=== PATIENT | female | born 1975 | race Hispanic/Latino ===

== ENCOUNTER → 2019-09-11 | Outpatient (CLI) | payer OTHER, MEDICARE ==
[~2019-09-11] MED LIST: CYCL30DR OP; LEVO50TA11 PO; NITR100C PO; TRAZ-185 PO
== END | disposition home or self-care (01) ==
LOC: RAH 07:28
PROVIDERS: ATTEND Physical Medicine & Rehabilitation
DX: M51.26 Other intervertebral disc displacement, lumbar region (principal); M48.061 Spinal stenosis, lumbar region without neurogenic claudication
CPT/HCPCS: 72148

== ENCOUNTER → 2020-05-05 | Outpatient (CLI) | payer OTHER | END | disposition home or self-care (01) | LOC: RAH 13:42 | PROVIDERS: ATTEND Family Medicine | DX: M19.072 Primary osteoarthritis, left ankle and foot (principal); M81.0 Age-related osteoporosis without current pathological fracture; M79.604 Pain in right leg; M79.672 Pain in left foot | CPT/HCPCS: 73630; 93971 ==

== ENCOUNTER → 2020-08-09 | Outpatient (CLI) | payer OTHER | END | disposition home or self-care (01) | LOC: RAH 10:50 | PROVIDERS: ATTEND Physical Medicine & Rehabilitation | DX: M25.511 Pain in right shoulder (principal) | CPT/HCPCS: 73030 ==

== ENCOUNTER 2021-08-03 09:37 | Day surgery (SDC) | payer OTHER ==
[2021-08-01 11:54] LABS: BASOPHILS % (AUTO) 0.3 % (0.0-5.0); EOSINOPHILS % (AUTO) 1.9 % (0.0-8.0); HEMATOCRIT 39.1 % (36-48); LYMPHOCYTES % (AUTO) 21.4 % (21.0-51.0); MEAN CORPUSCULAR HEMOGLOBIN 29.3 pg (27.0-33.0); MEAN CORPUSCULAR VOLUME 91.8 fL (79-99); MONOCYTES % (AUTO) 6.2 % (3.0-13.0); NEUTROPHILS % (AUTO) 69.3 % (40.0-77.0); PLATELET COUNT (AUTO) 304 K/uL (130-400); RED BLOOD CELL COUNT(AUTO) 4.26 MIL/uL (4.00-5.50); RED CELL DISTRIBUTION WIDTH 13.6 % (11.0-15.5); WHITE BLOOD COUNT (AUTO) 12.9 K/uL (4.8-10.8)
[2021-08-01 12:03] LABS: INR 0.97 (0.85-1.15); PROTHROMBIN TIME 10.6 SEC (9.6-11.6)
[2021-08-01 12:05] LABS: PARTIAL THROMBOPLASTIN TIME 24.4 SEC (26.3-35.5)
[2021-08-01 12:13] LABS: ALBUMIN 3.7 g/dL (3.5-5.0); BILIRUBIN,TOTAL 0.3 mg/dL (0.2-1.0); CREATININE 0.8 mg/dL (0.5-1.5); POTASSIUM 4.2 mmol/L (3.5-5.1); TOTAL PROTEIN, SERUM 7.9 g/dL (6.0-8.3)
[2021-08-03] VITALS (20 sets, daily range): BP systolic 123–159; BP diastolic 63–97
[~2021-08-03] VITALS: Ht 174 cm; Wt 111.1 kg
[~2021-08-03 09:37] MED LIST changes: +CEFAZOLIN SODIUM 1 GM VIAL IVP ONE; +CETI10TA57 PO; -CYCL30DR OP; +FLUT15.87 NS; -LEVO50TA11 PO; +MONT-39 PO; -NITR100C PO; +[UNRECOGNIZED DRUG - OTHER] PO
[2021-08-03] MEDS ORDERED: LACTATED RINGERS 1000ML 1,000 ML IV ONE (11:12)
[2021-08-03] MEDS ORDERED: CEFAZOLIN SODIUM 1 GM VIAL ONE (11:12)
[2021-08-03] MEDS ORDERED: LIDOCAINE 1%-EPI 1:100,000 20 ML VIAL IJ ONE (11:22)
[2021-08-03] MEDS ORDERED: SUCCINYLCHOLINE CHLORIDE 20 MG/ML 10 ML VIAL ONE (11:52)
[2021-08-03] MEDS ORDERED: LIDOCAINE PF 100MG/5ML (2%) SYRINGE 5ML ONE (11:52)
[2021-08-03] MEDS ORDERED: ROCURONIUM 10MG/1ML SYR 10 MG/ML ML ONE ×2 (11:53→12:50)
[2021-08-03] MEDS ORDERED: MIDAZOLAM HCL 1 MG/ML 2ML VIAL ONE (11:53)
[2021-08-03] MEDS ORDERED: PROPOFOL 10 MG/ML 20ML VIAL IV ONE (11:53)
[2021-08-03] MEDS ORDERED: FENTANYL CITRATE PF 50 MCG/1 ML 2ML VIAL ONE (11:53)
[2021-08-03] MEDS ORDERED: BACITRACIN 28.4 GM OINT TP ONE (12:06)
[2021-08-03] MEDS ORDERED: OXYMETAZOLINE HCL SPRAY 15 ML BOTTLE ONE (12:06)
[2021-08-03] MEDS ORDERED: DEXAMETHASONE SOD PHOSPHATE 10MG/ML 1ML VIAL ONE (12:09)
[2021-08-03] MEDS ORDERED: ONDANSETRON 4MG INJ ONE (12:10)
[2021-08-03] MEDS ORDERED: PHENYLEPHRINE HCL 10 MG/ML 1ML VIAL IV ONE (12:20)
[2021-08-03] MEDS ORDERED: EPHEDRINE SULFATE 50 MG/ML AMPULE ONE (12:28)
[2021-08-03] MEDS ORDERED: VASOPRESSIN 20 UNITS/ML 1ML VIAL ONE (12:44)
[2021-08-03] MEDS ORDERED: GLYCOPYRROLATE 1 MG/5 ML SYRINGE ONE (13:15)
[2021-08-03] MEDS ORDERED: NEOSTIGMINE 5MG/5ML SYR IV ONE (13:15)
[2021-08-03] MEDS ORDERED: ALBUTEROL INHALER 90MCG/INH IH ONE (13:22)
[2021-08-03] MEDS ORDERED: IPRATROPIUM/ALBUTEROL SULFATE 3 ML SOLUTION IH ONE (14:21)
[2021-08-03] MEDS ORDERED: FURO40TA5 PO (14:38)
[2021-08-03] MEDS ORDERED: SPIR25TA6 PO (14:39)
[2021-08-03] MEDS ORDERED: ACETAMINOPHEN WITH CODEINE 1 TAB TAB ONE (14:54)
[2021-08-03] MEDS ORDERED: ACETAMINOPHEN WITH CODEINE 1 TAB TAB PO SCH (16:00)
== END 2021-08-03 15:35 | disposition home or self-care (01) ==
LOC: DAH 09:37
PROVIDERS: ATTEND Otolaryngology Plastic Surgery within the Head & Neck
DX: J34.2 Deviated nasal septum (principal); Z20.822 Contact with and (suspected) exposure to COVID-19; J34.89 Other specified disorders of nose and nasal sinuses; J34.3 Hypertrophy of nasal turbinates; G47.33 Obstructive sleep apnea (adult) (pediatric); E66.01 Morbid (severe) obesity due to excess calories; K21.9 Gastro-esophageal reflux disease without esophagitis; Z98.890 Other specified postprocedural states; Z87.891 Personal history of nicotine dependence; Z79.01 Long term (current) use of anticoagulants
CPT/HCPCS: 30520; 30930; 36415; 80053; 84703; 85025; 85610; 85730; 87635; 93005; 94640; A4215 ×2; A4216; A4221; A4222; A4223 ×2; A4649; A4663; A4930; C9803; J0330; J0690; J1100; J2001; J2250; J2370; J2405; J2704; J2710; J3010; J3490 ×4; J7120

== ENCOUNTER → 2022-03-26 | Outpatient (CLI) | payer OTHER ==
[~2022-03-26] MED LIST changes: -CEFAZOLIN SODIUM 1 GM VIAL IVP ONE; +FURO40TA5 PO; +SPIR25TA6 PO
== END | disposition home or self-care (01) ==
LOC: RAH 12:24
PROVIDERS: ATTEND Family Medicine
DX: E03.8 Other specified hypothyroidism (principal)
CPT/HCPCS: 76536